=== PATIENT | male | born 1980 | race Caucasian/White ===

== ENCOUNTER 2025-02-24 11:23 | Emergency (ER) | payer BC, SELFPAY ==
[2025-02-24 11:31] VITALS: BP 128/86
--- NOTE | 2025-02-24 12:00 | ED.GENMED ---
History of Present Illness
General
Chief Complaint: Musculo-Skeletal Complaint
Source: patient
Exam Limitations: none
Time Seen by Provider: 02/24/25 11:40
History of Present Illness
History of Present Illness:
See MDM
Past History
Past History
ED Past Medical History: None
ED Past Surgical History: None
Social History
Tobacco: Non-smoker
Alcohol: None
Phy Exam
Physical Exam
Physical Exam:
See MDM
Course
Orders/Labs/Results
Orders:
Orders
02/24/25 11:36
Ankle, left 3 view CR [CR Ankle - Left Min 3 Views ] Urgent
Comment:
Reason For Exam: pain after hearing a pop
02/24/25 11:59
Crutches-Treatment ONCE
boot [Ortho Boot Right- Treatment] ONCE
Short or tall?: Short
Oxycodone/Acetaminophen [Percocet 5/325] 1 tablet PO NOW STA
Vital Signs
Initial and Last Documented VS:
Initial Vital Signs
Temp Pulse Resp BP Pulse Ox
98.4 F 98 20 128/86 98
02/24/25 11:31 02/24/25 11:31 02/24/25 11:31 02/24/25 11:31 02/24/25 11:31
Last Documented Vital Signs
Temp Pulse Resp BP Pulse Ox
98.4 F 98 20 128/86 98
02/24/25 11:31 02/24/25 11:31 02/24/25 11:31 02/24/25 11:31 02/24/25 12:04
MDM/Problems Addressed
Differential Diagnosis Includes:
Note:
CHIEF COMPLAINT(S)
Right ankle pain following an injury during physical activity.
HISTORY OF PRESENT ILLNESS
The patient is a 45-year-old male who presented with right ankle pain following an acute injury. While engaging in a physical activity, he stepped backwards to catch a ball and heard an audible 'pop,' following which he fell to the ground. He
described the sound as similar to a snapping branch, which was heard by others present at the scene. The patient reported throbbing pain but refrained from excessive movement of the ankle due to discomfort. On examination, there is suspicion of an
Achilles tendon injury; however, the Achilles appears to be intact, suggesting a potential partial tear rather than a complete rupture. He reports no prior similar injuries. The patient expects non-surgical management involving physical therapy and
rehabilitation.
PHYSICAL EXAM
General: Alert, no acute distress.
Skin: Warm, dry.
Head: Normocephalic, atraumatic
Neck: Appears supple, trachea midline.
Eyes, Ears, Nose, Mouth, and Throat: Moist mucous membranes
Cardiovascular: No signs of cyanosis
Respiratory: Respirations are non-labored.
Abdomen: Non-distended
Musculoskeletal: No deformities. Tenderness localized to Achilles tendon. It is palpable. Limited range of motion of ankle secondary to pain but he is able to plantarflex the foot. The distal foot is otherwise neurovascular intact
Neurological: No focal neurological deficit observed.
Psychiatric: Cooperative, appropriate mood and affect.
PLAN
- Apply a posterior splint or consider the use of a cam boot.
- Prescribe crutches for ambulation.
- Follow up with a television installer for further assessment and management.
- Prescribe pain medication, specifically oxycodone/acetaminophen (Percocet), to manage pain.
DIFFERENTIAL DIAGNOSIS
The Differential Diagnosis includes, in no particular order and is not limited to:
- Achilles tendon tear
- Ankle sprain
- Tendonitis
- Ankle fracture
- Calcaneal fracture
- Ligamentous injury
- Muscle strain
- Deep vein thrombosis
- Tendon rupture
- Contusion
SUMMARY OF ENCOUNTER
The patient was seen in the emergency department due to an acute right ankle injury characterized by an audible 'pop' and subsequent pain suggesting an Achilles tendon injury. Initial management involves immobilization with a splint and pain
control. Given the intact nature of the tendon, non-surgical treatment with physical therapy and follow-up with a television installer is anticipated.
MEDICATION RECONCILIATION
- Prescribed oxycodone/acetaminophen (Percocet) for pain management.
MEDICAL DECISION MAKING
- Number and Complexity of Problems Addressed: Chronic conditions affecting care [None mentioned].
- The Differential Diagnosis includes, in no particular order and is not limited to: Achilles tendon tear, ankle sprain, tendonitis, ankle fracture, calcaneal fracture, ligamentous injury, muscle strain, deep vein thrombosis, tendon rupture,
contusion.
- Data:
- Category 1:
- External record reviewed: X-ray imaging of the ankle, which looked unremarkable.
- Risk:
- Prescription drug management of pain with oxycodone/acetaminophen (Percocet).
DIAGNOSIS
- Partial tear of Achilles tendon (ICD-10: S86.011A)
SUMMARY OF ENCOUNTER
The patient presented with a right ankle injury after hearing an audible snap while engaging in physical activity. Pain is localized to the Achilles tendon, with range of motion intact in the distal ankle, suggesting a partial tear rather than a
complete tear of the Achilles tendon. Care management included immobilization with a boot and provision of crutches, as well as a prescription for pain medication. Follow-up with an orthopedist was advised for further assessment and management.
PLAN
- Immobilization of the ankle using a cam boot.
- Provision of crutches for ambulation.
- Prescription of pain medication for pain management.
- Referral and follow-up with an orthopedist for further evaluation and treatment.
INDEPENDENT REVIEW OF LABS AND INTERPRETATION OF TESTS
- My independent review of the X-ray imaging of the ankle is that it appears unremarkable.
MEDICATION RECONCILIATION
- Prescribed oxycodone/acetaminophen for pain management.
MEDICAL DECISION MAKING
- Number and Complexity of Problems Addressed: The differential diagnosis includes a partial Achilles tendon tear, Achilles tendon tear, ankle sprain, tendonitis, ankle fracture, calcaneal fracture, ligamentous injury, muscle strain, deep vein
thrombosis, tendon rupture, and contusion.
- Data:
- Category 1: X-ray imaging of the ankle reviewed, which appeared unremarkable.
- Risk:
- Prescription drug management for pain with oxycodone/acetaminophen.
DIAGNOSIS
- Partial tear of Achilles tendon (ICD-10: S86.011A).
*Pulse Oximetry
SaO2: 98
Oxygen Mode of Delivery: Room air
Patient hypoxic: no
*Critical Care Note
Total Time (30-74mins, 75-104mins- exclusive of procedures): Not Applicable
ED Attending Note
-
Portions of this chart may have been created with voice recognition software.� Occasional wrong word or��sound alike� substitutions may have occurred due to the inherent limitations of voice recognition software.
Discharge Plan
Departure
Patient Disposition: Home (Routine Discharge)
Date of Disposition: 02/24/25
Time of Disposition: 12:03
Patient with high blood pressure during this ER visit?: No
Discharge Problem:
Injury of right Achilles tendon
Prescriptions:
New
oxycodone-acetaminophen [Percocet] 5-325 mg Tablet
1 tab PO Q6HPRN PRN (Reason: pain) Qty: 7 0RF
diclofenac sodium 75 mg tablet,delayed release (DR/EC)
75 mg PO BID PRN (Reason: Pain) Qty: 20 0RF
oxycodone-acetaminophen [Percocet] 5-325 mg Tablet
1 tab PO Q6HPRN PRN (Reason: pain) Qty: 7 0RF
Referrals:
Carlos Enrique Jessica MD [Active, Orthopedics]
Activity Restrictions/Additional Instructions:
Please return for any worsening symptoms.
You may return at any time if you have further concerns.
Please follow up with the orthopedist
Thank you for choosing [facility].
Interventions
Interventions:
*Risk Screen - Suicide Last Done: 02/24/25 11:31
*General Assessment Last Done: 02/24/25 12:18
*Neglect/Abuse Screening Last Done: 02/24/25 11:31
*ED- Fall Risk Assessment Last Done: 02/24/25 12:18
*ED COVID-19 Vaccine History Last Done: 02/24/25 12:18
*ED Influenza Vaccine History Last Done: 02/24/25 12:18
*Nursing Disposition Last Done: 02/24/25 12:19
ED-Musculoskeletal Assessment Last Done: 02/24/25 12:18
Discharge Date and Time
Discharge Date/Time: 02/24/25 12:21
Print Language: TURKISH
[2025-02-24] MEDS: PERCOCET 5/325 1 TABLET PO (12:16)
== END 2025-02-24 12:21 | disposition home or self-care (01) ==
LOC: EMR 11:23
PROVIDERS: EMERGENCY PHYSICIAN Student in an Organized Health Care Education/Training Program; FAMILY PHYSICIAN Family Medicine
DX: S86.001A Unspecified injury of right Achilles tendon, initial encounter (principal); W01.0XXA Fall on same level from slipping, tripping and stumbling without subsequent striking against object, initial encounter; Y93.67 Activity, basketball; Y92.310 Basketball court as the place of occurrence of the external cause
CPT/HCPCS: 99283; 73610